=== PATIENT | male | born 1995 | race African-American/Black ===

== ENCOUNTER 2023-05-04 12:23 | Emergency (ER) | payer OTHER ==
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
[2023-05-04] MEDS ORDERED: DERMABOND SKIN ADHESIVE TOP ONE (13:33)
[2023-05-04 13:43] VITALS: BP 142/95; TEMP 98.1; O2SAT 97
== END 2023-05-04 13:38 | disposition home or self-care (01) ==
LOC: ER 12:23
PROC: 0HQ1XZZ Repair Face Skin, External Approach (ICD-10-PCS; principal; 2023-05-04)
DX: S02.2XXA Fracture of nasal bones, initial encounter for closed fracture (principal); S01.81XA Laceration without foreign body of other part of head, initial encounter; I10 Essential (primary) hypertension
CPT/HCPCS: 70450; 70486; 72125; 76377; 99283